=== PATIENT | male | born 1995 | race African-American/Black ===

== ENCOUNTER 2017-07-30 02:52 | Emergency (ER) | payer BC ==
[~2017-07-30] VITALS: Ht 188 cm; Wt 118.0 kg
[2017-07-30 06:54] VITALS: BP 144/88
== END 2017-07-30 06:59 | disposition home or self-care (01) ==
LOC: ER 03:07
DX: S43.102A Unspecified dislocation of left acromioclavicular joint, initial encounter (principal); M25.562 Pain in left knee; R07.9 Chest pain, unspecified; Z88.6 Allergy status to analgesic agent; Z91.018 Allergy to other foods; V49.9XXA Car occupant (driver) (passenger) injured in unspecified traffic accident, initial encounter; Y93.89 Activity, other specified; Y99.8 Other external cause status; Y92.410 Unspecified street and highway as the place of occurrence of the external cause
CPT/HCPCS: 71020; 73030; 73560; 99284; Z7610; A4565